=== PATIENT | female | born 1985 | race Caucasian/White ===

== ENCOUNTER 2017-03-03 10:17 | Emergency (ER) | payer MEDICAID ==
[2017-03-03 10:31] VITALS: BP 116/70
[2017-03-03] MEDS ORDERED: Albuterol 0.083% 2.5 MG/3 ML Neb Soln NEB ONE (10:44)
--- NOTE | 2017-03-03 10:49 | EDM.PDOC ---
ED HPI GENERAL MEDICAL PROBLEM - General Chief Complaint: Respiratory Problem Stated Complaint: HURTS IN CHEST Time Seen by Provider: 03/03/17 10:35 Source of Information: Reports: Patient, RN History Limitations: Reports: No Limitations - History of Present Illness INITIAL COMMENTS - FREE TEXT/NARRATIVE: 31 yo female with no previous dx of asthma presents due to feeling wheezy with exertion. Has a mild sore throat. No other sx's. Used her 2 yo daughter's nebulizer without much benefit. Does not smoke. No fever. Onset: Gradual Onset Date: 02/28/17 Duration: Day(s):, Intermittent Location: Reports: Chest Quality: Reports: Other (no pain) Severity: Mild Improves with: Reports: Rest Worsens with: Reports: Movement (exertion) Context: Reports: Other (unknown) Associated Symptoms: Reports: Cough, Shortness of Breath. 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 Denies: Pleuritic Chest Pain, Sputum, Hemoptysis Cardiovascular: Reports: No Symptoms GI/Abdominal: Reports: No Symptoms : Reports: No Symptoms Musculoskeletal: Reports: No Symptoms Skin: Reports: No Symptoms Neurological: Reports: No Symptoms Psychiatric: Reports: No Symptoms ED EXAM, GENERAL - Physical Exam Exam: See Below Exam Limited By: No Limitations General Appearance: Alert, WD/WN, No Apparent Distress Eye Exam: Bilateral Eye: Normal Inspection Ears: Normal External Exam, Normal Canal, Hearing Grossly Normal, Normal TMs Ear Exam: Bilateral Ear: Auricle Normal, Canal Normal, TM normal Nose: Normal Inspection, Normal Mucosa, No Blood Throat/Mouth: Normal Inspection, Normal Lips, Normal Teeth, Normal Oropharynx, Normal Voice, No Airway Compromise Head: Atraumatic, Normocephalic Neck: Normal Inspection, Supple, Non-Tender Respiratory/Chest: No Respiratory Distress, No Accessory Muscle Use, Decreased Breath Sounds. No: Respiratory Distress Cardiovascular: Regular Rate, Rhythm, No Edema Extremities: Normal Inspection, Normal Range of Motion, No Pedal Edema Neurological: Alert, Oriented, CN II-XII Intact, Normal Cognition, No Motor/ Sensory Deficits Psychiatric: Normal Affect, Normal Mood Skin Exam: Warm, Dry, Intact, Normal Color, No Rash Lymphatic: No Adenopathy Course - Vital Signs Text/Narrative:: Feeling better, better aeration of lungs after neb tx. Last Recorded V/S: Last Vital Signs Temp 36.6 C 03/03/17 10:29 Pulse 93 03/03/17 10:29 Resp 16 03/03/17 10:29 BP 116/70 03/03/17 10:29 Pulse Ox 96 03/03/17 10:29 - Orders/Labs/Meds Orders: Active Orders 24 hr Category Date Time Status RT Aerosol Therapy [RC] ASDIRECTED Care 03/03/17 10:44 Active Meds: Medications Discontinued Medications Generic Name Dose Route Start Last Admin Trade Name Freq PRN Reason Stop Dose Admin Albuterol 2.5 mg 03/03/17 10:44 03/03/17 10:55 Proventil Neb Soln NEB 03/03/17 10:45 2.5 mg ONETIME ONE Administration Departure - Departure Time of Disposition: 11:09 Disposition: Home, Self-Care 01 Condition: Good Clinical Impression: Bronchospasm - Discharge Information Referrals: Kurt Combs MD [Primary Care Provider] - Forms: ED Department Discharge - My Orders Last 24 Hours: My Active Orders 03/03/17 10:44 RT Aerosol Therapy [RC] ASDIRECTED - Assessment/Plan Last 24 Hours: My Active Orders 03/03/17 10:44 RT Aerosol Therapy [RC] ASDIRECTED
== END 2017-03-03 11:18 | disposition home or self-care (01) ==
LOC: JP.ED 10:17
DX: J98.01 Acute bronchospasm (principal)
CPT/HCPCS: 94640; 99285-25

== ENCOUNTER 2019-03-23 08:24 | Emergency (ER) | payer MEDICAID ==
[2019-03-23] MEDS ORDERED: Sodium Chloride 0.9% 10 ML Syringe FLUSH PRN ×2 (09:06→10:18)
--- NOTE | 2019-03-23 09:10 | EDM.PDOC ---
ED HPI GENERAL MEDICAL PROBLEM - General Chief Complaint: Abdominal Pain Stated Complaint: RIGHT SIDE PAIN Time Seen by Provider: 03/23/19 09:01 Source of Information: Reports: Patient, RN Notes Reviewed History Limitations: Reports: No Limitations - History of Present Illness INITIAL COMMENTS - FREE TEXT/NARRATIVE: 33-year-old female presents emergency department a complaint of abdominal pain, she states his had abdominal pain for the last 2 days it is predominantly in the right lower quadrant no nausea or vomiting has not had any fevers she still passing gas denies any GI symptomatologies does have a past medical history of section and tubal ligation. Denies anorexia feels more comfortable lying on her side pain is constant Right Lower Abdomen Pain Score (Numeric/FACES): 10 - Related Data Allergies Allergy/AdvReac Type Severity Reaction Status Date / Time No Known Allergies Allergy Verified 03/23/19 08:45 Home Meds: Home Meds Sulfamethoxazole/Trimethoprim [Bactrim Ds Tablet] 1 each PO BID #6 tablet [Rx] Past Medical History HEENT History: Reports: Other (See Below) Other HEENT History: TMJ. hearing loss [employer] History: Reports: Dysfunctional Uterine Bleeding, Neurological History: Reports: Migraines Psychiatric History: Reports: Depression - Past Surgical History HEENT Surgical History: Reports: Tonsillectomy Female Surgical History: Reports: Section, Tubal Ligation Social & Family History - Tobacco Use Smoking Status *Q: Never Smoker - Caffeine Use Caffeine Use: Reports: Soda - Recreational Drug Use Recreational Drug Use: No ED ROS GENERAL - Review of Systems Review Of Systems: See Below Constitutional: Reports: No Symptoms HEENT: Reports: No Symptoms Respiratory: Reports: No Symptoms Cardiovascular: Reports: No Symptoms GI/Abdominal: Reports: Abdominal Pain, Flatus. Denies: Constipation, Diarrhea, Nausea, Vomiting : Reports: No Symptoms Musculoskeletal: Reports: No Symptoms ED EXAM, GI/ABD - Physical Exam Exam: See Below Exam Limited By: No Limitations General Appearance: Alert, WD/WN, No Apparent Distress Eyes: Bilateral: Normal Appearance Respiratory/Chest: No Respiratory Distress, Lungs Clear, Normal Breath Sounds, No Accessory Muscle Use, Chest Non-Tender Cardiovascular: Regular Rate, Rhythm, No Murmur GI/Abdominal Exam: Soft, No Distention, Tender (Right lower quadrant) Course - Vital Signs Last Recorded V/S: Last Vital Signs Temp 99.6 F 03/23/19 10:44 Pulse 93 03/23/19 10:44 Resp 16 03/23/19 10:44 BP 110/53 L 03/23/19 10:44 Pulse Ox 97 03/23/19 10:44 - Orders/Labs/Meds Orders: Active Orders 24 hr Category Date Time Status Peripheral IV Care [RC] . DIRECTED Care 03/23/19 09:06 Active CULTURE URINE [RM] Urgent Lab 03/23/19 10:51 Received Lactated Ringers [Ringers, Lactated] 1,000 ml Med 03/23/19 09:15 Active IV ASDIRECTED Sodium Chloride 0.9% [Normal Saline] 70 ml Med 03/23/19 10:30 Active IV ASDIRECTED Sodium Chloride 0.9% [Saline Flush] Med 03/23/19 09:06 Active 10 ml FLUSH ASDIRECTED PRN Sodium Chloride 0.9% [Saline Flush] Med 03/23/19 10:18 Active 10 ml FLUSH ONETIME PRN Peripheral IV Insertion Adult [OM.PC] Urgent Oth 03/23/19 09:06 Ordered Medication Orders Lactated Ringer's (Ringers, Lactated) 1,000 mls @ 999 mls/hr IV ASDIRECTED [facility] Last Admin: 03/23/19 09:36 Dose: 999 mls/hr Sodium Chloride (Normal Saline) 70 mls @ 3 mls/sec IV ASDIRECTED MEME Last Admin: 03/23/19 10:27 Dose: 3 mls/sec Sodium Chloride (Saline Flush) 10 ml FLUSH ASDIRECTED PRN PRN Reason: Keep Vein Open Last Admin: 03/23/19 09:45 Dose: 10 ml Sodium Chloride (Saline Flush) 10 ml FLUSH ONETIME PRN PRN Reason: per radiology protocol Last Admin: 03/23/19 10:28 Dose: 10 ml Labs: Laboratory Tests 03/23/19 03/23/19 03/23/19 Range/Units 09:06 09:26 09:26 WBC 6.4 (4.5-11.0) K/uL RBC 4.46 (3.30-5.50) M/uL Hgb 12.4 (12.0-15.0) g/dL Hct 37.5 (36.0-48.0) % MCV 84 (80-98) fL MCH 28 (27-31) pg MCHC 33 (32-36) % Plt Count 231 (150-400) K/uL Neut % (Auto) 81 H (36-66) % Lymph % (Auto) 13 L (24-44) % Cass % (Auto) 5 (2-6) % Eos % (Auto) 1 L (2-4) % Baso % (Auto) 0 (0-1) % Sodium 136 L (140-148) mmol/L Potassium 3.6 (3.6-5.2) mmol/L Chloride 100 (100-108) mmol/L Carbon Dioxide 25 (21-32) mmol/L Anion Gap 14.6 H (5.0-14.0) mmol/L BUN 11 (7-18) mg/dL Creatinine 0.8 (0.6-1.0) mg/dL Est Cr Clr Drug Dosing 84.29 mL/min Estimated GFR (MDRD) > 60 (>60) Glucose 108 H (74-106) mg/dL Lactic Acid (0.4-2.0) mmol/L Calcium 9.1 (8.5-10.1) mg/dL Total Bilirubin 0.8 (0.2-1.0) mg/dL AST 15 (15-37) U/L ALT 16 (12-78) U/L Alkaline Phosphatase 82 (46-116) U/L Total Protein 7.8 (6.4-8.2) g/dL Albumin 3.8 (3.4-5.0) g/dL Globulin 4.0 H (2.3-3.5) g/dL Albumin/Globulin Ratio 1.0 L (1.2-2.2) Lipase 90 (73-393) U/L HCG, Qual Urine Color Yellow (YELLOW) Urine Appearance Cloudy A (CLEAR) Urine pH 7.0 (5.0-8.0) Ur Specific [place] 1.020 (1.008-1.030) Urine Protein 100 H (NEGATIVE) mg/dL Urine Glucose (UA) Negative (NEGATIVE) mg/dL Urine Ketones Negative (NEGATIVE) mg/dL Urine Occult Blood Moderate H (NEGATIVE) Urine Nitrite Positive H (NEGATIVE) Urine Bilirubin Negative (NEGATIVE) Urine Urobilinogen 1.0 (0.2-1.0) EU/dL Ur Leukocyte Esterase Large H (NEGATIVE) Urine RBC 20-30 H (0-5) Urine WBC Semi-packed H (0-5) Ur Epithelial Cells Moderate Amorphous Sediment Not seen Urine Bacteria Many Urine Mucus Few 03/23/19 03/23/19 Range/Units 09:26 09:26 WBC (4.5-11.0) K/uL RBC (3.30-5.50) M/uL Hgb (12.0-15.0) g/dL Hct (36.0-48.0) % MCV (80-98) fL MCH (27-31) pg MCHC (32-36) % Plt Count (150-400) K/uL Neut % (Auto) (36-66) % Lymph % (Auto) (24-44) % Cass % (Auto) (2-6) % Eos % (Auto) (2-4) % Baso % (Auto) (0-1) % Sodium (140-148) mmol/L Potassium (3.6-5.2) mmol/L Chloride (100-108) mmol/L Carbon Dioxide (21-32) mmol/L Anion Gap (5.0-14.0) mmol/L BUN (7-18) mg/dL Creatinine (0.6-1.0) mg/dL Est Cr Clr Drug Dosing mL/min Estimated GFR (MDRD) (>60) Glucose (74-106) mg/dL Lactic Acid 1.2 (0.4-2.0) mmol/L Calcium (8.5-10.1) mg/dL Total Bilirubin (0.2-1.0) mg/dL AST (15-37) U/L ALT (12-78) U/L Alkaline Phosphatase (46-116) U/L Total Protein (6.4-8.2) g/dL Albumin (3.4-5.0) g/dL Globulin (2.3-3.5) g/dL Albumin/Globulin Ratio (1.2-2.2) Lipase (73-393) U/L HCG, Qual Negative Urine Color (YELLOW) Urine Appearance (CLEAR) Urine pH (5.0-8.0) Ur Specific [place] (1.008-1.030) Urine Protein (NEGATIVE) mg/dL Urine Glucose (UA) (NEGATIVE) mg/dL Urine Ketones (NEGATIVE) mg/dL Urine Occult Blood (NEGATIVE) Urine Nitrite (NEGATIVE) Urine Bilirubin (NEGATIVE) Urine Urobilinogen (0.2-1.0) EU/dL Ur Leukocyte Esterase (NEGATIVE) Urine RBC (0-5) Urine WBC (0-5) Ur Epithelial Cells Amorphous Sediment Urine Bacteria Urine Mucus Meds: Medications Generic Name Dose Route Start Last Admin Trade Name Freq PRN Reason Stop Dose Admin Lactated Ringer's 1,000 mls @ 999 mls/hr 03/23/19 09:15 03/23/19 09:36 Ringers, Lactated IV 999 mls/hr ASDIRECTED MEME Administration Sodium Chloride 70 mls @ 3 mls/sec 03/23/19 10:30 03/23/19 10:27 Normal Saline IV 3 mls/sec ASDIRECTED MEME Administration Sodium Chloride 10 ml 03/23/19 09:06 03/23/19 09:45 Saline Flush FLUSH 10 ml ASDIRECTED PRN Administration Keep Vein Open Sodium Chloride 10 ml 03/23/19 10:18 03/23/19 10:28 Saline Flush FLUSH 10 ml ONETIME PRN Administration per radiology protocol Discontinued Medications Generic Name Dose Route Start Last Admin Trade Name Freq PRN Reason Stop Dose Admin Fentanyl 50 mcg 03/23/19 09:27 03/23/19 09:37 Sublimaze IVPUSH 03/23/19 09:28 50 mcg ONETIME ONE Administration Iopamidol 84 ml 03/23/19 10:18 03/23/19 10:27 Isovue-300 (61%) IV 03/23/19 10:19 84 ml ONETIME ONE Administration Departure - Departure Time of Disposition: 11:27 Disposition: Home, Self-Care 01 Condition: Fair Clinical Impression: UTI (urinary tract infection) Qualifiers: Urinary tract infection type: acute cystitis Hematuria presence: with hematuria Qualified Code(s): N30.01 - Acute cystitis with hematuria Ovarian cyst Qualifiers: Laterality: right Qualified Code(s): N83.201 - Unspecified ovarian cyst, right side - Discharge Information Prescriptions: Sulfamethoxazole/Trimethoprim [Bactrim Ds Tablet] 1 each PO BID #6 tablet Referrals: PCP,None [Primary Care Provider] - Forms: ED Department Discharge Additional Instructions: Take full course of antibiotics, your antibiotics have been faxed to [facility] pharmacy, use ibuprofen as needed for ovarian cyst pain, please followup with your primary care provider in 3-5 days if not better, please call return to the emergency department with worsening of symptoms. Sepsis Event Note - Evaluation Sepsis Screening Result: No Definite Risk - Focused Exam Vital Signs: Vital Signs Temp Pulse Resp BP Pulse Ox 03/23/19 10:44 99.6 F 93 16 110/53 L 97 03/23/19 08:43 99.6 F 86 18 116/69 100 Date Exam was Performed: 03/23/19 Time Exam was Performed: 11:26 - My Orders Last 24 Hours: My Active Orders 03/23/19 09:06 Peripheral IV Care [RC] . DIRECTED Sodium Chloride 0.9% [Saline Flush] 10 ml FLUSH ASDIRECTED PRN Peripheral IV Insertion Adult [OM.PC] Urgent 03/23/19 09:15 Lactated Ringers [Ringers, Lactated] 1,000 ml IV ASDIRECTED 03/23/19 10:18 Sodium Chloride 0.9% [Saline Flush] 10 ml FLUSH ONETIME PRN 03/23/19 10:30 Sodium Chloride 0.9% [Normal Saline] 70 ml IV ASDIRECTED 03/23/19 10:51 CULTURE URINE [RM] Urgent - Assessment/Plan Last 24 Hours: My Active Orders 03/23/19 09:06 Peripheral IV Care [RC] . DIRECTED Sodium Chloride 0.9% [Saline Flush] 10 ml FLUSH ASDIRECTED PRN Peripheral IV Insertion Adult [OM.PC] Urgent 03/23/19 09:15 Lactated Ringers [Ringers, Lactated] 1,000 ml IV ASDIRECTED 03/23/19 10:18 Sodium Chloride 0.9% [Saline Flush] 10 ml FLUSH ONETIME PRN 03/23/19 10:30 Sodium Chloride 0.9% [Normal Saline] 70 ml IV ASDIRECTED 03/23/19 10:51 CULTURE URINE [RM] Urgent Plan: Assessment Acuity = acute Site and laterality = urinary tract infection complicated with right 2 cm ovarian cyst Etiology = probable bacterial cause for urinary tract infection cyst appears to be physiologic Manifestations = abdominal pain Location of injury = Home Lab values = CBC, CMP, lactic acid all within normal limits CT scan describes the cyst above urinalysis reveals 20-30 RBCs consistent with hematuria and packed WBCs consistent with pyuria Plan Going treat with Bactrim DS 1 tab p.o. twice daily x3 days urinary culture is pending, ibuprofen as needed for the ovarian cyst follow-up primary care 3 to 5 days if not better This note was dictated using [employer] voice recognition software please call with any questions on syntax or grammar.
[2019-03-23] MEDS ORDERED: Lactated Ringers 1,000 ML IV SCH (09:15)
[2019-03-23] MEDS ORDERED: fentaNYL 100 MCG/2 ML SDV IVPUSH ONE (09:27)
[2019-03-23] MEDS ORDERED: Iopamidol 500 ML BOTTLE IV ONE (10:18)
[2019-03-23 10:45] VITALS: BP 110/53; PULSE 93
--- NOTE | 2019-03-23 11:07 | CRLCT ---
INDICATION: Right lower quadrant pain COMPARISON: None TECHNIQUE: CT examination of the abdomen and pelvis was performed following the uneventful intravenous administration of 84 cc of Isovue-300. Thin section axial images were obtained from the lung bases through the pubic symphysis. Oral contrast was not administered. Please note that all CT scans at this facility use dose modulation, iterative reconstruction, and/or weight-based dosing when appropriate to reduce radiation dose to as low as reasonably achievable. FINDINGS: LUNG BASES: The lung bases as visualized appear normal.The heart size is normal at the lung bases. LIVER/BILIARY SYSTEM:The liver is normal in size and configuration. There is no focal mass and there is no intra- or extra hepatic biliary ductal dilatation.The gall bladder appears normal. ADRENALS: Normal KIDNEYS, URETERS and BLADDER:The kidneys appear normal. No visible mass, calculus or hydronephrosis. The ureters and bladder as visualized appear normal. SPLEEN:Normal appearance. PANCREAS: Appears normal. RETROPERITONEUM and MESENTERY: There is no mass, adenopathy or aortic aneurysm. GASTROINTESTINAL SYSTEM: There is no evidence of diverticulitis, colitis, mechanical obstruction, or appendicitis. The small bowel as visualized appears normal.The appendix is well seen and appears normal. Mild fecal retention PELVIS: No mass, adenopathy or free fluid.There are 2 small cysts associated with the right ovary 1 measuring 1.9 centimeters and the other 1.6 centimeters. These are likely follicles. OSSEOUS STRUCTURES and ABDOMINAL WALL: There is an age-appropriate appearance of the osseous structures.No significant abdominal wall defect. OTHER: No free fluid or free air. IMPRESSION: 1. The appendix is well seen and appears normal. Mild fecal retention. No mechanical obstruction. 2. There are 2 physiologic-appearing cystic structures in the right ovary likely follicles. One of these measures 1.9 centimeters and the other measures 1.6 centimeter Please note that all CT scans at this facility use dose modulation, iterative reconstruction, and/or weight-based dosing when appropriate to reduce radiation dose to as low as reasonably achievable. Dictated by Brent Mehta MD @ Mar 23 2019 11:01AM Signed by Dr. Brent Mehta @ Mar 23 2019 11:06AM
== END 2019-03-23 11:41 | disposition home or self-care (01) ==
LOC: JP.ED 08:24
DX: N30.01 Acute cystitis with hematuria (principal); N83.201 Unspecified ovarian cyst, right side; Z98.890 Other specified postprocedural states; Z98.51 Tubal ligation status
CPT/HCPCS: 36415; 74177; 80053; 81001; 83605; 83690; 84703; 85025; 87086; 87088; 87186; 96361; 96374; 99284; J3010; J7050; J7120; Q9967

== ENCOUNTER 2019-06-25 22:26 | Emergency (ER) | payer MEDICAID ==
[2019-06-25 22:45] VITALS: BP 105/64; PULSE 102
[2019-06-25] MEDS ORDERED: Ketorolac 60 MG/2 ML SDV IM ONE (22:49)
--- NOTE | 2019-06-25 22:52 | EDM.PDOC ---
ED HPI GENERAL MEDICAL PROBLEM - General Chief Complaint: Upper Extremity Injury/Pain Stated Complaint: R WRIST PAIN Time Seen by Provider: 06/25/19 22:47 Source of Information: Reports: Patient, RN Notes Reviewed History Limitations: Reports: No Limitations - History of Present Illness INITIAL COMMENTS - FREE TEXT/NARRATIVE: 33-year-old female presents emergency department today following a fall on outstretched hand right side she injured herself this evening about 30 minutes prior to her presentation it was a fall from ground it was dark she believes she tripped she now is seen having significant pain difficult for her to move her wrist she does have some bruising over the thumb as well right wrist Pain Score (Numeric/FACES): 10 - Related Data Allergies Allergy/AdvReac Type Severity Reaction Status Date / Time No Known Allergies Allergy Verified 06/25/19 22:38 Home Meds: Home Meds NK [No Known Home Meds] 06/25/19 [History] Past Medical History HEENT History: Reports: Other (See Below) Other HEENT History: TMJ. hearing loss [employer] History: Reports: Dysfunctional Uterine Bleeding, Neurological History: Reports: Migraines Psychiatric History: Reports: Depression - Past Surgical History HEENT Surgical History: Reports: Tonsillectomy Female Surgical History: Reports: Section, Tubal Ligation Social & Family History - Tobacco Use Smoking Status *Q: Never Smoker - Caffeine Use Caffeine Use: Reports: Soda - Recreational Drug Use Recreational Drug Use: No Review of Systems - Review of Systems Review Of Systems: See Below Musculoskeletal: Reports: Joint Pain (Right wrist) ED EXAM, GENERAL - Physical Exam Exam: See Below Free Text/Narrative:: Examination the right wrist I do appreciate some bruising over the thenar eminence on the right side she has full range of motion of all digits however limited range of motion the wrist both flexion and extension due to pain radial pulses +2 sensation is intact Course - Vital Signs Last Recorded V/S: Last Vital Signs Temp 97.4 F 06/25/19 22:41 Pulse 102 H 06/25/19 22:41 Resp 15 06/25/19 22:41 BP 105/64 06/25/19 22:41 Pulse Ox 98 06/25/19 22:41 - Orders/Labs/Meds Orders: Active Orders 24 hr Category Date Time Status Wrist Comp Min 3V Rt [CR] Stat Exams 06/25/19 22:49 Taken Meds: Medications Discontinued Medications Generic Name Dose Route Start Last Admin Trade Name Rocky PRN Reason Stop Dose Admin Ketorolac Tromethamine 60 mg 06/25/19 22:49 06/25/19 22:58 Toradol IM 06/25/19 22:50 60 mg ONETIME ONE Administration Departure - Departure Time of Disposition: 23:18 Disposition: Home, Self-Care 01 Condition: Fair Clinical Impression: Right wrist sprain Qualifiers: Encounter type: initial encounter Qualified Code(s): S63.501A - Unspecified sprain of right wrist, initial encounter - Discharge Information Instructions: Wrist Sprain, Adult Referrals: Kurt Combs MD [Primary Care Provider] - Forms: ED Department Discharge Additional Instructions: Continue to use Tylenol and Motrin as needed for pain control, continue to use the wrist splint for comfort we will contact you if the radiology read is different from what you been told, please follow-up with your primary care in the next 3 to 5 days for reevaluation if not better Sepsis Event Note - Evaluation Sepsis Screening Result: No Definite Risk - Focused Exam Vital Signs: Vital Signs Temp Pulse Resp BP Pulse Ox 06/25/19 22:41 97.4 F 102 H 15 105/64 98 06/25/19 22:39 97.4 F 102 H 15 105/64 98 Date Exam was Performed: 06/25/19 Time Exam was Performed: 23:17 - My Orders Last 24 Hours: My Active Orders 06/25/19 22:49 Wrist Comp Min 3V Rt [CR] Stat - Assessment/Plan Last 24 Hours: My Active Orders 06/25/19 22:49 Wrist Comp Min 3V Rt [CR] Stat Plan: Assessment Acuity = acute Site and laterality = right wrist sprain Etiology = secondary to fall Manifestations = none Location of injury = Home Lab values = wrist x-ray I did review films myself I cannot appreciate any acute process, the official read from radiology is pending Plan I did review x-ray results with her we will contact her if the official read from radiology differs from what she has been told, she is placed in a wrist splint for comfort Velcro by nursing staff will use Tylenol and Motrin as needed for pain control rest ice elevation follow-up primary care 3 to 5 days if not better This note was dictated using [employer] recognition software please call with any questions on syntax or grammar.
--- NOTE | 2019-06-28 10:17 | CR ---
Wrist Comp Min 3V Rt CLINICAL HISTORY: Fall FINDINGS: There is no acute fracture or dislocation within the right wrist. There is some mild deformity of the trapezium. There is suggestion of some possible joint laxity at the first carpometacarpal joint. This is likely nonacute. There is a small subcortical cyst on the scaphoid. Impression: No acute fracture There is some deformity of the trapezium and suggestion of some possible laxity in the trapezial metacarpal joint. This may be degenerative. Clinical correlation is necessary
== END 2019-06-25 23:30 | disposition home or self-care (01) ==
LOC: JP.ED 22:26
DX: S63.501A Unspecified sprain of right wrist, initial encounter (principal); S60.221A Contusion of right hand, initial encounter; W18.30XA Fall on same level, unspecified, initial encounter
CPT/HCPCS: 73110; 96372; 99283; J1885

== ENCOUNTER 2019-09-04 15:51 | Emergency (ER) | payer MEDICAID ==
--- NOTE | 2019-09-04 16:33 | EDM.PDOCBH ---
ED HPI GENERAL MEDICAL PROBLEM - General Chief Complaint: Drug or Alcohol Abuse Stated Complaint: POSSIBLE OVERDOSE Time Seen by Provider: 09/04/19 16:30 Source of Information: Reports: Patient History Limitations: Reports: No Limitations - History of Present Illness INITIAL COMMENTS - FREE TEXT/NARRATIVE: Evelyn is a 33 year old female, presents to the ED today after she took 6 of her 100 mg Seroquel thirty minutes prior to arrival here. Patient states she took medication to help her sleep after she was in a fight with her mom about her kids. Patient denies any suicidal ideation or plan. Patient declines any other medications. I spoke with poison control, peak effect 2 hours post ingestion, Tylenol level EKG. Monitor. Patient denies any complaints, states she is just tired. Onset: Today Duration: Minutes: (30) - Related Data Allergies Allergy/AdvReac Type Severity Reaction Status Date / Time No Known Allergies Allergy Verified 09/04/19 16:19 Home Meds: Home Meds QUEtiapine [SEROquel] 100 mg PO BEDTIME 09/04/19 [History] Past Medical History HEENT History: Reports: Other (See Below) Other HEENT History: TMJ. 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, Neurological History: Reports: Migraines Psychiatric History: Reports: Depression - Past Surgical History HEENT Surgical History: Reports: Tonsillectomy Female Surgical History: Reports: Section, Tubal Ligation Social & Family History - Tobacco Use Smoking Status *Q: Never Smoker - Caffeine Use Caffeine Use: Reports: Soda - Recreational Drug Use Recreational Drug Use: Yes Recreational Drug Type: Reports: Methamphetamine Recreational Drug Use Frequency: Daily Recreational Drug Last Use: 3 weeks ago ED ROS GENERAL - Review of Systems Review Of Systems: Comprehensive ROS is negative, except as noted in HPI. ED EXAM, BEHAVIORAL HEALTH - Physical Exam Exam: See Below General Appearance: Alert, WD/WN, No Apparent Distress Nose: Normal Inspection Throat/Mouth: Normal Inspection, Normal Oropharynx Head: Atraumatic, Normocephalic Neck: Normal Inspection Respiratory/Chest: No Respiratory Distress, Lungs Clear Cardiovascular: Normal Peripheral Pulses, Regular Rate, Rhythm GI/Abdominal: Normal Bowel Sounds, Soft Extremities: Normal Inspection Neurological: Alert, Normal Mood/Affect, CN II-XII Intact Psychiatric: Alert Skin Exam: Warm, Dry, Intact EKG INTERPRETATION EKG Date: 09/04/19 Time: 16:42 Rhythm: NSR [place]: Normal P-Wave: Present QRS: Normal ST-T: Normal QT: Normal COURSE, BEHAVIORAL HEALTH COMP - Course Vital Signs: Last Vital Signs Temp 36.4 C 09/04/19 16:18 Pulse 79 09/04/19 17:45 Resp 15 09/04/19 17:16 BP 106/59 L 09/04/19 17:45 Pulse Ox 97 09/04/19 17:16 Seroquel overdose, denies Suicidal ideation or self harm EKG, Tylenol and Salicylate reassuring, patient hemodynamically stable. 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 Reasons to return discussed, patient agreeable and discharged in stable condition. Orders, Labs, Meds: Active Orders 24 hr Category Date Time Status EKG Documentation Completion [RC] ASDIRECTED Care 09/04/19 16:16 Active EKG 12 Lead [EK] Stat Ther 09/04/19 16:15 Ordered Laboratory Tests 09/04/19 09/04/19 Range/Units 16:25 16:25 Salicylates 0.9 L (2.0-20.0) mg/dL Acetaminophen 0.0 L (10.0-30.0) ug/mL Departure - Departure Time of Disposition: 19:00 Disposition: Home, Self-Care 01 Condition: Good Clinical Impression: Drug abuse - Discharge Information Referrals: PCP,None [Primary Care Provider] - Forms: ED Department Discharge Additional Instructions: Avoid taking more medication than prescribed in the future. If you are feeling like you are suicidal please return to the Emergency Room. Sepsis Event Note (ED) - Evaluation Sepsis Screening Result: No Definite Risk - Focused Exam Vital Signs: Vital Signs Temp Pulse Resp BP Pulse Ox 09/04/19 17:45 79 106/59 L 09/04/19 17:16 91 15 111/66 97 09/04/19 16:38 78 17 103/60 97 09/04/19 16:18 36.4 C 100 12 110/68 96 09/04/19 16:13 36.4 C 100 12 110/68 96 - My Orders Last 24 Hours: My Active Orders 09/04/19 16:15 EKG 12 Lead [EK] Stat 09/04/19 16:16 EKG Documentation Completion [RC] ASDIRECTED - Assessment/Plan Last 24 Hours: My Active Orders 09/04/19 16:15 EKG 12 Lead [EK] Stat 09/04/19 16:16 EKG Documentation Completion [RC] ASDIRECTED
[2019-09-04 17:46] VITALS: BP 106/59; PULSE 79
== END 2019-09-04 19:07 | disposition home or self-care (01) ==
LOC: JP.ED 15:51
DX: T43.591A Poisoning by other antipsychotics and neuroleptics, accidental (unintentional), initial encounter (principal); F32.9 Major depressive disorder, single episode, unspecified; Z79.899 Other long term (current) drug therapy
CPT/HCPCS: 36415; 80307; 93005; 99284-25

== ENCOUNTER 2021-07-31 17:35 | Emergency (ER) | payer MEDICAID ==
[2021-07-31 18:24] VITALS: BP 107/56; PULSE 69
== END 2021-07-31 19:29 | disposition home or self-care (01) ==
LOC: JP.ED 17:35
DX: K62.5 Hemorrhage of anus and rectum (principal); Z79.899 Other long term (current) drug therapy
CPT/HCPCS: 36415; 82272; 85018; 99283

== ENCOUNTER 2021-12-22 20:11 | Emergency (ER) | payer MEDICAID ==
[2021-12-22 21:04] VITALS: BP 117/58; PULSE 86
[2021-12-22] MEDS ORDERED: Sodium Chloride 0.9% 10 ML Syringe FLUSH PRN (21:15)
[2021-12-22] MEDS ORDERED: Ondansetron 4 MG/2 ML SDV IVPUSH ONE (21:18)
[2021-12-22] MEDS ORDERED: fentaNYL 100 MCG/2 ML SDV IVPUSH ONE (21:18)
[2021-12-22] MEDS ORDERED: Sodium Chloride 0.9% 1,000 ML IV SCH (21:30)
[2021-12-22] MEDS ORDERED: Sodium Chloride 0.9% 100 ML IV ONE (21:44)
[2021-12-22] MEDS ORDERED: Iopamidol 612 MG/ML 100 ML Bottle IV ONE (21:44)
[2021-12-22 22:03] LABS: ESTIMATED GFR 121 mL/min (>60)
[2021-12-22] MEDS ORDERED: Ketorolac 30 MG/ML SDV IVPUSH ONE (22:11)
[2021-12-22] MEDS ORDERED: Ondansetron 4 MG/2 ML SDV ONE (23:34)
[2021-12-22 23:36] LABS: CORONAVIRUS COVID-19 NAA NEGATIVE (NEGATIVE)
== END 2021-12-23 01:35 | disposition home or self-care (01) ==
LOC: JP.ED 20:11
DX: K59.01 Slow transit constipation (principal); Z20.822 Contact with and (suspected) exposure to COVID-19
CPT/HCPCS: 0241U; 36415; 74177; 80053; 81001; 83690; 85025; 86140; 96361; 96374; 96375; 99284; J1885; J2405; J3490; J7030; Q9967

== ENCOUNTER 2022-01-25 19:58 | Emergency (ER) | payer MEDICAID ==
[2022-01-25] MEDS ORDERED: Sodium Chloride 0.9% 1,000 ML IV STA (20:46)
[2022-01-25] MEDS ORDERED: Ondansetron 4 MG/2 ML SDV IVPUSH ONE (20:47)
[2022-01-25] MEDS ORDERED: fentaNYL 100 MCG/2 ML SDV IVPUSH ONE ×2 (20:47→22:09)
[2022-01-25] MEDS: Sodium Chloride 0.9% 10 ML Syringe FLUSH PRN (21:22)
[2022-01-25 21:30] LABS: ESTIMATED GFR 116 mL/min (>60)
[2022-01-26 01:17] VITALS: BP 119/54; PULSE 68
[2022-01-26] MEDS ORDERED: fentaNYL 50 MCG/ML SDV IM ONE (02:13)
[2022-01-26] MEDS ORDERED: fentaNYL 50 MCG/ML SDV IVPUSH ONE (02:21)
[2022-01-26] MEDS: Sodium Chloride 0.9% 10 ML Syringe FLUSH PRN (02:42)
== END 2022-01-26 02:54 ==
LOC: JP.ED 19:58
DX: K80.80 Other cholelithiasis without obstruction (principal); Z20.822 Contact with and (suspected) exposure to COVID-19
CPT/HCPCS: 36415; 76705; 80053; 81001; 81025; 83605; 83690; 84484; 85025; 87635; 96361; 96374; 96375; 96376; 99285; J2405; J3010; J3490; J7030; U0002

== ENCOUNTER 2022-09-23 21:34 | Emergency (ER) | payer MEDICAID ==
[2022-09-24 00:16] VITALS: BP 125/56; PULSE 78
[2022-09-24] MEDS: Acetaminophen 325 MG Tab PO ONE (00:33)
[2022-09-24 00:36] LABS: BASOPHILS ABSOLUTE AUTO 0.06 K/uL (0.00-0.10); BASOPHILS PERCENT AUTO 1.3 % (0.1-1.3); EOSINOPHILS ABSOLUTE AUTO 0.17 K/uL (0.00-0.40); EOSINOPHILS PERCENT AUTO 3.6 % (0.0-5.4); HEMATOCRIT 28.4 % (34.3-46.0); IMMATURE GRAN PERCENT AUTO 0.4 % (0.0-0.7); LYMPHOCYTES ABSOLUTE AUTO 2.08 K/uL (0.8-3.3); LYMPHOCYTES PERCENT AUTO 44.2 % (11.4-47.7); MEAN CORPUSCULAR HEMOGLOBIN 24.5 pg (31.6-35.5); MEAN CORPUSCULAR HGB CONC 31.7 g/dL (31.6-35.5); MEAN CORPUSCULAR VOLUME 77.4 fL (81.4-99.0); MONOCYTES ABSOLUTE AUTO 0.33 K/uL (0.20-0.90); NEUTROPHILS ABSOLUTE AUTO 2.05 K/uL (1.0-7.6); NEUTROPHILS PERCENT AUTO 43.5 % (40.0-78.1); PLATELET COUNT,PLT 269 K/uL (130-375); RED BLOOD CELL COUNT 3.67 M/uL (3.77-5.24); WHITE BLOOD CELL COUNT,WBC 4.7 K/uL (3.2-11.0)
[2022-09-24 00:38] LABS: IMMATURE GRAN ABSOLUTE AUTO 0.02 K/uL (0.00-0.23)
[2022-09-24 00:56] LABS: ALANINE AMINOTRANSFERASE,ALT 20 U/L (12-78); ALBUMIN 3.1 g/dL (3.4-5.0); ALKALINE PHOSPHATASE 70 U/L (46-116); ANION GAP 9.7 mmol/L (5.0-14.0); ASPARTATE AMNIOTRANSFERASE,AST 19 U/L (15-37); BILIRUBIN TOTAL 0.1 mg/dL (0.2-1.0); BLOOD UREA NITROGEN,BUN 14 mg/dL (7-18); C-REACTIVE PROTEIN 0.16 mg/dL (0.0-0.3); CALCIUM 8.1 mg/dL (8.5-10.1); CARBON DIOXIDE,CO2 24 mmol/L (21-32); CHLORIDE,CL 106 mmol/L (100-108); CREATININE 0.6 mg/dL (0.6-1.0); EST CRCL DRUG DOSING (CG) 109.29 mL/min; ESTIMATED GFR 121 mL/min (>60); GLUCOSE RANDOM 105 mg/dL (74-106); POTASSIUM,K 3.6 mmol/L (3.6-5.2); PROTEIN TOTAL,TP 6.2 g/dL (6.4-8.2); SODIUM,NA 140 mmol/L (140-148)
== END 2022-09-24 01:41 | disposition home or self-care (01) ==
LOC: JP.ED 21:34
DX: R09.1 Pleurisy (principal); B97.89 Other viral agents as the cause of diseases classified elsewhere; Z86.16 Personal history of COVID-19
CPT/HCPCS: 36415; 71046; 80053; 84484; 85025; 85379; 86140; 93005; 99285; A9270

== ENCOUNTER 2023-07-28 16:02 | Emergency (ER) | payer MEDICAID ==
[2023-07-28 18:26] LABS: APPEARANCE,URINE SLIGHTLY CLOUDY (CLEAR); BILIRUBIN,URINE NEGATIVE (NEGATIVE); COLOR,URINE YELLOW (YELLOW); GLUCOSE,URINE NEGATIVE (NEGATIVE); KETONES,URINE NEGATIVE (NEGATIVE); LEUKOCYTE ESTERASE,URINE TRACE (NEGATIVE); NITRITE,URINE NEGATIVE (NEGATIVE); OCCULT BLOOD,URINE NEGATIVE (NEGATIVE); PROTEIN,URINE NEGATIVE (NEGATIVE); UROBILINOGEN,URINE 0.2 EU/dL (0.2-1.0)
[2023-07-28 18:31] LABS: AMORPHOUS SEDIMENT,URINE NOT SEEN; BACTERIA,URINE MODERATE; EPITHELIAL CELLS,URINE MODERATE; MUCUS,URINE FEW; RBC,URINE 0-5 (0-5)
[2023-07-28] MEDS: Sodium Chloride 0.9% 10 ML Syringe FLUSH PRN (18:32)
[2023-07-28] MEDS: Sodium Chloride 0.9% 1,000 ML IV STA (18:32)
[2023-07-28 18:34] LABS: BASOPHILS ABSOLUTE AUTO 0.04 K/uL (0.00-0.10); BASOPHILS PERCENT AUTO 0.8 % (0.1-1.3); EOSINOPHILS ABSOLUTE AUTO 0.16 K/uL (0.00-0.40); IMMATURE GRAN ABSOLUTE AUTO 0.01 K/uL (0.00-0.23); IMMATURE GRAN PERCENT AUTO 0.2 % (0.0-0.7); LYMPHOCYTES ABSOLUTE AUTO 2.12 K/uL (0.8-3.3); LYMPHOCYTES PERCENT AUTO 39.8 % (11.4-47.7); MEAN CORPUSCULAR HEMOGLOBIN 22.8 pg (31.6-35.5); MEAN CORPUSCULAR HGB CONC 31.3 g/dL (31.6-35.5); MEAN CORPUSCULAR VOLUME 72.9 fL (81.4-99.0); MONOCYTES ABSOLUTE AUTO 0.43 K/uL (0.20-0.90); MONOCYTES PERCENT AUTO 8.1 % (3.3-12.6); NEUTROPHILS ABSOLUTE AUTO 2.56 K/uL (1.0-7.6); NEUTROPHILS PERCENT AUTO 48.1 % (40.0-78.1); PLATELET COUNT,PLT 319 K/uL (130-375); RED BLOOD CELL COUNT 4.39 M/uL (3.77-5.24); WHITE BLOOD CELL COUNT,WBC 5.3 K/uL (3.2-11.0)
[2023-07-28] MEDS: fentaNYL 100 MCG/2 ML SDV IVPUSH ONE (18:39)
[2023-07-28] MEDS: Ondansetron 4 MG/2 ML SDV IVPUSH ONE (18:40)
[2023-07-28] MEDS: Sodium Chloride 0.9% 50 ML IV SCH (18:55)
[2023-07-28] MEDS: Iopamidol 612 MG/ML 100 ML Bottle IV SCH (18:55)
[2023-07-28 18:58] LABS: A/G RATIO 0.9 (1.2-2.2); ALANINE AMINOTRANSFERASE,ALT 28 U/L (12-78); ALBUMIN 3.5 g/dL (3.4-5.0); ALKALINE PHOSPHATASE 87 U/L (46-116); ANION GAP 13.7 mmol/L (5.0-14.0); ASPARTATE AMNIOTRANSFERASE,AST 22 U/L (15-37); BILIRUBIN TOTAL 0.2 mg/dL (0.2-1.0); BLOOD UREA NITROGEN,BUN 17 mg/dL (7-18); CALCIUM 8.9 mg/dL (8.5-10.1); CARBON DIOXIDE,CO2 26 mmol/L (21-32); CHLORIDE,CL 102 mmol/L (100-108); CREATININE 0.7 mg/dL (0.6-1.0); EST CRCL DRUG DOSING (CG) 92.79 mL/min; ESTIMATED GFR 116 mL/min (>60); GLUCOSE RANDOM 100 mg/dL (74-106); POTASSIUM,K 3.7 mmol/L (3.6-5.2); PROTEIN TOTAL,TP 7.5 g/dL (6.4-8.2); SODIUM,NA 138 mmol/L (140-148); TROPONIN I HIGH SENSITIVITY < 4.0 pg/mL (<=60.3)
[2023-07-28 19:52] VITALS: BP 108/51; PULSE 69
== END 2023-07-28 20:30 | disposition home or self-care (01) ==
LOC: JP.ED 16:02
DX: K59.04 Chronic idiopathic constipation (principal); J45.909 Unspecified asthma, uncomplicated; Z86.16 Personal history of COVID-19; Z79.899 Other long term (current) drug therapy; Z79.51 Long term (current) use of inhaled steroids; Z90.49 Acquired absence of other specified parts of digestive tract
CPT/HCPCS: 36415; 74177; 80053; 81001; 83605; 83690; 84484; 85025; 87086; 96374; 96375; 99284-25; J2405; J3010; J3490; J7030; Q9967

== ENCOUNTER 2023-08-20 07:37 | Day surgery (SDC) | payer MEDICAID ==
[2023-08-20] MEDS: Sodium Chloride 0.9% 1,000 ML IV SCH (08:11)
[2023-08-20] MEDS ORDERED: Midazolam 1 MG/ML 2 ML SDV ONE (08:46)
[2023-08-20] MEDS ORDERED: fentaNYL 50 MCG/ML SDV ONE (08:47)
[2023-08-20] MEDS ORDERED: Propofol 200 MG/20 ML SDV ONE ×2 (08:47→10:09)
[2023-08-20 11:17] VITALS: BP 96/52; PULSE 76
== END 2023-08-20 11:35 | disposition other institution (70) ==
LOC: JP.SDS 07:37
PROVIDERS: ATTEND Surgery
DX: Z12.11 Encounter for screening for malignant neoplasm of colon (principal); F32.A Depression, unspecified
CPT/HCPCS: 45378; J2250; J2704; J3010; J7030; 00811-QZ

== ENCOUNTER 2024-01-06 07:36 | Emergency (ER) | payer MEDICAID | END 2024-01-06 08:13 | disposition left against medical advice (07) | LOC: JP.ED 07:36 | DX: Z53.21 Procedure and treatment not carried out due to patient leaving prior to being seen by health care provider (principal) ==

== ENCOUNTER 2024-05-02 12:59 | Emergency (ER) | payer MEDICAID ==
[2024-05-02 13:40] VITALS: BP 115/68; PULSE 72
== END 2024-05-02 13:35 | disposition left against medical advice (07) ==
LOC: JP.ED 12:59
DX: Z53.21 Procedure and treatment not carried out due to patient leaving prior to being seen by health care provider (principal)

== ENCOUNTER 2024-11-29 14:56 | Emergency (ER) | payer MEDICAID ==
[2024-11-29 15:40] LABS: APPEARANCE,URINE SLIGHTLY CLOUDY (CLEAR); GLUCOSE,URINE NEGATIVE (NEGATIVE); OCCULT BLOOD,URINE TRACE-INTACT (NEGATIVE)
[2024-11-29 15:52] LABS: SQUAMOUS EPITHELIAL CELLS,UR MANY /HPF; UROTHELIAL CELLS,URINE NOT SEEN /HPF
[2024-11-29 16:13] LABS: BASOPHILS ABSOLUTE AUTO 0.03 K/uL (0.00-0.10); BASOPHILS PERCENT AUTO 0.5 % (0.1-1.3); EOSINOPHILS ABSOLUTE AUTO 0.23 K/uL (0.00-0.40); EOSINOPHILS PERCENT AUTO 3.6 % (0.0-5.4); IMMATURE GRAN PERCENT AUTO 0.2 % (0.0-0.7); LYMPHOCYTES ABSOLUTE AUTO 1.75 K/uL (0.8-3.3); LYMPHOCYTES PERCENT AUTO 27.6 % (11.4-47.7); MONOCYTES ABSOLUTE AUTO 0.46 K/uL (0.20-0.90); MONOCYTES PERCENT AUTO 7.3 % (3.3-12.6); NEUTROPHILS ABSOLUTE AUTO 3.86 K/uL (1.0-7.6); NEUTROPHILS PERCENT AUTO 60.8 % (40.0-78.1); PLATELET COUNT,PLT 256 K/uL (130-375); RED BLOOD CELL COUNT 4.35 M/uL (3.77-5.24); WHITE BLOOD CELL COUNT,WBC 6.3 K/uL (3.2-11.0)
[2024-11-29] MEDS: Ketorolac 30 MG/ML SDV IM ONE (16:16)
[2024-11-29 16:17] LABS: IMMATURE GRAN ABSOLUTE AUTO 0.01 K/uL (0.00-0.23)
[2024-11-29 16:29] VITALS: BP 92/45; PULSE 67
[2024-11-29 16:37] LABS: BLOOD UREA NITROGEN,BUN 7.0 mg/dL (7-18); CARBON DIOXIDE,CO2 28.0 mmol/L (21-32); CHLORIDE,CL 107.0 mmol/L (100-108); CREATININE 0.6 mg/dL (0.6-1.0); EST CRCL DRUG DOSING (CG) 106.19 mL/min; ESTIMATED GFR 118.0 mL/min (>60); GLUCOSE RANDOM 88.0 mg/dL (74-106); POTASSIUM,K 3.6 mmol/L (3.6-5.2); SODIUM,NA 143.0 mmol/L (140-148)
== END 2024-11-29 16:57 | disposition home or self-care (01) ==
LOC: JP.ED 14:56
DX: N39.0 Urinary tract infection, site not specified (principal); E66.9 Obesity, unspecified; F17.200 Nicotine dependence, unspecified, uncomplicated; Z79.899 Other long term (current) drug therapy; Z86.16 Personal history of COVID-19; Z90.49 Acquired absence of other specified parts of digestive tract; Z68.30 Body mass index [BMI] 30.0-30.9, adult
CPT/HCPCS: 36415; 80048; 81001; 83605; 85025; 87086; 96372; 99284; J1885